=== PATIENT | female | born 1990 | race African-American/Black ===

== ENCOUNTER 2016-09-18 20:34 | Emergency (ER) | payer MEDICAID ==
[~2016-09-18] VITALS: Ht 162.6 cm; Wt 58.0 kg
[~2016-09-18 20:34] MED LIST: CEPH500C3 PO; PREN0.01 PO
[2016-09-18 20:36] VITALS: BP 119/68; PULSE 83; RESP 15; TEMP 98; O2SAT 96
--- NOTE | 2016-09-18 21:06 | PD ---
HPI Chief Complaint: Eye Problems/Injury Time Seen by Provider: 21:00 Travel History International Travel<30 days: No Contact w/Intl Traveler<30days: No Traveled to known affect area: No History of Present Illness HPI 26-year-old female presents for evaluation of left eye pain. Symptoms started this morning. She describes it as an irritation in her left eye that is worse with exposure to sunlight. She reports that she does wear contacts. She did wear them overnight and she took them out this morning. She denies any orbital injury. Denies any fevers or chills. Denies any unusual chemical exposure. She has no other complaints at this time. Last tetanus vaccination unknown. PFSH Past Medical History Diminished Hearing: No Gastrointestinal Disorders: Yes (REFLUX A CHILD) Immunizations Current: Yes ?: Not : 5 Para: 3 Miscarriage: 1 Social History Alcohol Use: No Tobacco Use: No Substance Use: No Allergies-Medications (Allergen,Severity, Reaction): Coded Allergies: No Known Allergies (Verified , 09/18/16) Reported Meds & Prescriptions Reported Meds & Active Scripts Active Tobrex Opth Drops (Tobramycin Opth Drops) 0.3 % Soln 1 Drop LEFT EYE Q4H 7 Days Lortab (Hydrocodone-Acetaminophen) 5-325 Mg Tab 1 Tab PO Q6H PRN Keflex (Cephalexin Monohydrate) 500 Mg Cap 500 Mg PO Q8 7 Days Reported Vitamins 1 Tab PO DAILY Review of Systems General / Constitutional: No: Fever, Chills Eyes: Positive: Redness, Foreign Body Sensation, Pain Physical Exam Narrative GENERAL: Well-developed well-nourished female in no acute distress SKIN: Warm and dry. HEAD: Atraumatic. Normocephalic. EYES: Pupils equal and round reactive to light, extraocular muscles are intact. Left eye conjunctival injection is present. There is direct not consensual photophobia. There is no proptosis, no periorbital edema or erythema. Wood's lamp, slit lamp examination confirmed areas of corneal ulceration at the 12:00 and 6 o'clock position on the left cornea not overlying the pupil, negative Taya's. There is no cell or flare in the anterior chamber. ENT: No nasal bleeding or discharge. Mucous membranes pink and moist. Data Data Last Documented VS Vital Signs Date Time Temp Pulse Resp B/P Pulse Ox O2 Delivery O2 Flow Rate FiO2 09/18/16 20:36 98.0 83 15 119/68 96 Room Air Orders Proparacaine 0.5% Opth Soln (Alcaine 0.5 (09/18/16 21:15) MDM Medical Decision Making Medical Screen Exam Complete: Yes Emergency Medical Condition: Yes Medical Record Reviewed: Yes Differential Diagnosis Corneal ulceration, corneal abrasion, iritis, endophthalmitis, herpes simplex keratitis, foreign body, ruptured globe Narrative Course This is a 26-year-old female who slept with contacts in her eyes overnight who presents with left eye pain and irritation which started this morning. On examination she has left eye conjunctival injection and small corneal ulcerations at the 12:00 and 6:00 positions not overlying the pupils, negative Taya's. Tetanus status updated. Plan is to treat the patient with topical antibiotic ointment, Tobrex, as well as oral Lortab for pain control. She is encouraged to seek ophthalmologic follow-up in 1-2 days for recheck. She is stable for discharge. Diagnosis Primary Impression: Corneal ulcer of left eye Referrals: Anisa Harper MD Additional Instructions: Medication as prescribed. Follow-up with an mammalogist such as Dr. Harper in one to 2 days, call to make an appointment. Do not drive or drink alcohol when taking Lortab. Return for any emergent medical conditions. Do not wear contacts until cleared by mammalogist. Med/Other Pt SpecificInfo: Prescription(s) given Scripts Tobramycin Opth Drops (Tobrex Opth Drops)0.3 % Soln1 Drop LEFT EYE Q4H 7 Days Ref 0 Prov:Siva Carroll MD 09/18/16 Hydrocodone-Acetaminophen (Lortab)5-325 Mg Tab1 Tab PO Q6H PRN (PAIN) #15 TAB Ref 0 Prov:Svia Carroll MD 09/18/16 Disposition: 01 DISCHARGE HOME Condition: Stable Thom Granger Sep 18, 2016 21:06
[2016-09-18] MEDS ORDERED: PROPARACAINE HCL 0.5% OPHT SOLN 15 ML BTL LEFT EYE ONE (21:15)
[2016-09-18] MEDS ORDERED: TOBR0.3S LEFT EYE (21:21)
[2016-09-18] MEDS ORDERED: HYDR-3533 PO (21:21)
[2016-09-18] MEDS ORDERED: TETANUS/DIPHTHERIA TOXOID ADULT 0.5 ML VIAL IM ONE (21:30)
[2016-09-18] MEDS ORDERED: ACETAMINOPHEN/HYDROcodone 325 MG/5 MG TAB PO ONE (21:30)
== END 2016-09-18 21:53 | disposition home or self-care (01) ==
LOC: NEPB 20:34
DX: H16.002 Unspecified corneal ulcer, left eye (principal); Z23 Encounter for immunization
CPT/HCPCS: 90471; 90714

== ENCOUNTER 2017-02-17 12:23 | Emergency (ER) | payer MEDICAID ==
[~2017-02-17] VITALS: Ht 165.1 cm; Wt 58.0 kg
[~2017-02-17 12:23] MED LIST changes: +HYDR-3533 PO; +TOBR0.3S LEFT EYE
[2017-02-17 12:28] VITALS: BP 134/86; PULSE 76; RESP 20; TEMP 98; O2SAT 100
[2017-02-17 12:34] VITALS: BP 117/76; PULSE 80; RESP 18; O2SAT 98
[2017-02-17] MEDS ORDERED: ONDANSETRON HCL 4 MG/2 ML VIAL IVP ONE (12:45)
[2017-02-17] MEDS ORDERED: ALUMINUM/MAGNESIUM/SIMETH 30 ML CUP PO ONE (12:45)
[2017-02-17] MEDS ORDERED: PANTOPRAZOLE SODIUM 40 MG VIAL IVP ONE (12:45)
[2017-02-17] MEDS ORDERED: LIDOCAINE VISCOUS 2% SOLN 15 ML UDC PO ONE (12:45)
--- NOTE | 2017-02-17 12:47 | PD ---
HPI Chief Complaint: Abdominal Pain Time Seen by Provider: 12:39 Travel History International Travel<30 days: No Contact w/Intl Traveler<30days: No Traveled to known affect area: No History of Present Illness HPI This patient was examined in the presence of female nurse. 26-year-old female presents for evaluation of abdominal pain. Symptoms started this morning. The pain is an aching pain in the epigastrium/left upper quadrant. No obvious aggravating relieving factors. She endorses mild intermittent nausea for the past few weeks, worse this morning. She denies any fevers or chills, flank pain , diarrhea or constipation, vaginal bleeding or discharge. She has never had this sort of pain before. She endorses only very occasional ibuprofen use, denies other NSAID use. No other complaints. PFSH Past Medical History Medical History: Denies Significant Hx Diminished Hearing: No Gastrointestinal Disorders: Yes (REFLUX A CHILD) Immunizations Current: Yes ?: Not LMP: DEPO : 5 Para: 3 Miscarriage: 1 Past Surgical History Surgical History: No Previous Surgery Social History Alcohol Use: No Tobacco Use: No Substance Use: No Allergies-Medications (Allergen,Severity, Reaction): Coded Allergies: No Known Allergies (Verified , 02/17/17) Reported Meds & Prescriptions Reported Meds & Active Scripts Active Tobrex Opth Drops (Tobramycin Opth Drops) 0.3 % Soln 1 Drop LEFT EYE Q4H 7 Days Review of Systems Except as stated in HPI: all other systems reviewed are Neg Physical Exam Narrative GENERAL: Well-developed well-nourished female in no acute distress SKIN: Warm and dry. HEAD: Atraumatic. Normocephalic. EYES: Pupils equal and round. No scleral icterus. No injection or drainage. ENT: No nasal bleeding or discharge. Mucous membranes pink and moist. NECK: Trachea midline. No JVD. CARDIOVASCULAR: Regular rate and rhythm. No murmur appreciated. RESPIRATORY: No accessory muscle use. Clear to auscultation. Breath sounds equal bilaterally. GASTROINTESTINAL: Abdomen soft, non-tender, nondistended. Hepatic and splenic margins not palpable. MUSCULOSKELETAL: No obvious deformities. No edema. No CVA tenderness. NEUROLOGICAL: Awake and alert. No obvious cranial nerve deficits. Motor grossly within normal limits. Normal speech. PSYCHIATRIC: Appropriate mood and affect; insight and judgment normal. Data Data Last Documented VS Vital Signs Date Time Temp Pulse Resp B/P Pulse Ox O2 Delivery O2 Flow Rate FiO2 02/17/17 12:34 80 18 117/76 98 Room Air 02/17/17 12:28 98.0 Orders Complete Blood Count With Diff (02/17/17 12:43) Comprehensive Metabolic Panel (02/17/17 12:43) Lipase (02/17/17 12:43) Urinalysis - C+S If Indicated (02/17/17 12:43) Ondansetron Inj (Zofran Inj) (02/17/17 12:45) Pantoprazole Inj (Protonix Inj) (02/17/17 12:45) Al-Mag Hy-Si 40-40-4 Mg/Ml Liq (Mag-Al P (02/17/17 12:45) Lidocaine 2% Viscous (Xylocaine 2% Visco (02/17/17 12:45) Ed Urine Pregnancytest Poc (02/17/17 12:43) Labs Laboratory Tests Test 02/17/17 12:55 White Blood Count 5.9 TH/MM3 Red Blood Count 5.03 MIL/MM3 Hemoglobin 13.2 GM/DL Hematocrit 41.3 % Mean Corpuscular Volume 82.0 FL Mean Corpuscular Hemoglobin 26.1 PG Mean Corpuscular Hemoglobin 31.9 % Concent Red Cell Distribution Width 13.8 % Platelet Count 233 TH/MM3 Mean Platelet Volume 8.3 FL Neutrophils (%) (Auto) 59.7 % Lymphocytes (%) (Auto) 32.1 % Monocytes (%) (Auto) 7.1 % Eosinophils (%) (Auto) 0.7 % Basophils (%) (Auto) 0.4 % Neutrophils # (Auto) 3.5 TH/MM3 Lymphocytes # (Auto) 1.9 TH/MM3 Monocytes # (Auto) 0.4 TH/MM3 Eosinophils # (Auto) 0.0 TH/MM3 Basophils # (Auto) 0.0 TH/MM3 CBC Comment DIFF FINAL Differential Comment Urine Color YELLOW Urine Turbidity CLEAR Urine pH 6.0 Urine Specific [place] 1.026 Urine Protein NEG mg/dL Urine Glucose (UA) NEG mg/dL Urine Ketones NEG mg/dL Urine Occult Blood NEG Urine Nitrite NEG Urine Bilirubin NEG Urine Urobilinogen LESS THAN 2.0 MG/DL Urine Leukocyte Esterase NEG Urine RBC LESS THAN 1 /hpf Urine WBC LESS THAN 1 /hpf Urine Squamous Epithelial 1 /hpf Cells Urine Mucus FEW /lpf Microscopic Urinalysis Comment CULT NOT INDICATED Sodium Level 141 MEQ/L Potassium Level 3.8 MEQ/L Chloride Level 106 MEQ/L Carbon Dioxide Level 30.2 MEQ/L Anion Gap 5 MEQ/L Blood Urea Nitrogen 14 MG/DL Creatinine 1.01 MG/DL Estimat Glomerular Filtration 80 ML/MIN Rate Random Glucose 88 MG/DL Calcium Level 8.9 MG/DL Total Bilirubin 0.4 MG/DL Aspartate Amino Transf 16 U/L (AST/SGOT) Alanine Aminotransferase 18 U/L (ALT/SGPT) Alkaline Phosphatase 53 U/L Total Protein 7.6 GM/DL Albumin 4.1 GM/DL Lipase 242 U/L MDM Medical Decision Making Medical Screen Exam Complete: Yes Emergency Medical Condition: Yes Medical Record Reviewed: Yes Interpretation(s) ED urine test negative Differential Diagnosis Gastritis, peptic ulcer disease, pancreatitis, perforated ulcer, Mahaffey Abel syndrome, gastroenteritis Narrative Course 26-year-old female with intermittent nausea for the past few weeks now with left upper quadrant abdominal discomfort for one day. Her abdomen is soft and nontender. I suspect gastritis as the etiology of her symptoms based on the location of the pain. She has no peritoneal signs. She has no right upper quadrant tenderness. She has no CVA tenderness. Plan is for basic lab work. She will be given GI cocktail, Protonix and Zofran for symptom relief. Lab work is unremarkable. The patient reports significant improvement in her symptoms after the administration of GI cocktail. She is stable for discharge. Diagnosis Primary Impression: Gastritis Qualified Code: K29.00 - Acute gastritis, presence of bleeding unspecified, unspecified gastritis type Additional Instructions: Avoid [id number] naproxen/Advil/Motrin/Aleve/ibuprofen. Follow-up with primary care physician. Return for any emergent medical conditions. Med/Other Pt SpecificInfo: No Change to Meds Disposition: DISCHARGE HOME Condition: Stable Thom Granger Feb 17, 2017 12:47
[2017-02-17 13:15] LABS: AUTOMATED NEUTROPHIL # 3.5 TH/MM3 (1.8-7.7); BASOPHIL % 0.4 % (0.0-2.0); EOSINOPHIL % 0.7 % (0.0-4.0); HEMATOCRIT 41.3 % (35.0-46.0); HEMO FLAGS DIFF FINAL; LYMPH % 32.1 % (9.0-44.0); LYMPHOCYTE # 1.9 TH/MM3 (1.0-4.8); MEAN CORPUSCULAR HEMOGLOBIN 26.1 PG (27.0-34.0); MEAN CORPUSCULAR HGB CONC 31.9 % (32.0-36.0); MONO % 7.1 % (0.0-8.0); NEUT % 59.7 % (16.0-70.0); PLATELET COUNT 233 TH/MM3 (150-450); RED BLOOD COUNT 5.03 MIL/MM3 (4.00-5.30); RED CELL DISTRIBUTION WIDTH 13.8 % (11.6-17.2); WHITE BLOOD COUNT 5.9 TH/MM3 (4.0-11.0)
[2017-02-17 13:27] LABS: BLOOD, URINE NEG (NEG); COMMENT (UR) CULT NOT INDICATED; CULTURE IF INDICATED CULT NOT INDICATED; GLUCOSE,URINE NEG (NEG); KETONE, URINE NEG (NEG); MUCUS URINE FEW /lpf (OCC); NITRITE,URINE NEG (NEG); SQUAMOUS EPITHELIAL CELL URINE 1 /hpf (0-5); URINE COLOR YELLOW (YELLW/STRAW)
[2017-02-17 13:30] LABS: ANION GAP 5 MEQ/L (5-15); AST (GOT) 16 U/L (15-37); BICARBONATE 30.2 MEQ/L (21.0-32.0); BLOOD UREA NITROGEN 14 MG/DL (7-18); CHLORIDE 106 MEQ/L (98-107); GLOMERULAR FILTRATION RATE 80 ML/MIN (>89); POTASSIUM 3.8 MEQ/L (3.5-5.1); SODIUM (NA) 141 MEQ/L (136-145)
[2017-02-17 13:33] LABS: ALKALINE PHOSPHATASE 53 U/L (45-117); ALT (GPT) 18 U/L (10-53); TOTAL BILIRUBIN ADULT 0.4 MG/DL (0.2-1.0)
== END 2017-02-17 13:52 | disposition home or self-care (01) ==
LOC: NEPD 12:23
DX: K29.70 Gastritis, unspecified, without bleeding (principal)
CPT/HCPCS: 80053; 81001; 83690; 84703; 85025; 96374; 96375; 99284; C9113; J2405

== ENCOUNTER 2017-08-24 19:35 | Emergency (ER) | payer MEDICAID ==
[~2017-08-24] VITALS: Ht 162.6 cm; Wt 58.0 kg
[~2017-08-24 19:35] MED LIST changes: -CEPH500C3 PO; -HYDR-3533 PO; -PREN0.01 PO
[2017-08-24 19:37] VITALS: BP 110/73; TEMP 99.5; O2SAT 100
[2017-08-24 19:38] VITALS: BP 110/73; PULSE 78; RESP 16; TEMP 99.5; O2SAT 100
--- NOTE | 2017-08-24 20:31 | PD ---
HPI Chief Complaint: ENT Complaint Time Seen by Provider: 20:31 Travel History International Travel<30 days: No Contact w/Intl Traveler<30days: No Traveled to known affect area: No History of Present Illness HPI 27-year-old female came to the emergency room with history of right ear pain that has been going on for past 4-5 days. She has also noticed that she can't hear much out of the right ear. The pain is significant words affecting her scalp on that side. Vital signs are stable. Patient denies swimming. Patient has noticed some clear discharge from her ear and has put some tissue in that ear to prevent the drainage. PFS Past Medical History Narrative Medical List of her past medical, surgical, social and family history is reviewed from the nursing note. Diminished Hearing: No Gastrointestinal Disorders: Yes (REFLUX A CHILD) Immunizations Current: Yes ?: Not : 5 Para: 3 Miscarriage: 1 Past Surgical History Surgical History: No Previous Surgery Social History Alcohol Use: No Tobacco Use: No Substance Use: No Allergies-Medications (Allergen,Severity, Reaction): Coded Allergies: No Known Allergies (Verified Adverse Reaction, Unknown, 08/24/17) Comments No known drug allergies. Reported Meds & Prescriptions Reported Meds & Active Scripts Active Tobrex Opth Drops (Tobramycin Opth Drops) 0.3 % Soln 1 Drop LEFT EYE Q4H 7 Days Narrative Medication List of her home medications reviewed from the nursing note. Review of Systems Except as stated in HPI: all other systems reviewed are Neg HENT: Positive: Ear Discharge, Earache Physical Exam Narrative GENERAL: Awake, alert, moderate distress SKIN: Focused skin assessment warm/dry. HEAD: Atraumatic. Normocephalic. EYES: Pupils equal and round. No scleral icterus. No injection or drainage. ENT: No nasal bleeding or discharge. Mucous membranes pink and moist. Right ear canal is swollen shut and very tender to touch. I was unable to insert the speculum to inspect the middle ear. NECK: Trachea midline. No JVD. CARDIOVASCULAR: Regular rate and rhythm. No murmur appreciated. RESPIRATORY: No accessory muscle use. Clear to auscultation. Breath sounds equal bilaterally. GASTROINTESTINAL: Abdomen soft, non-tender, nondistended. Hepatic and splenic margins not palpable. MUSCULOSKELETAL: No obvious deformities. No clubbing. No cyanosis. No edema. NEUROLOGICAL: Awake and alert. No obvious cranial nerve deficits. Motor grossly within normal limits. Normal speech. PSYCHIATRIC: Appropriate mood and affect; insight and judgment normal. Data Data Last Documented VS Orders Orders Ibuprofen (Motrin) (08/24/17 20:45) Ciprofloxacin-Hc Otic Soln (Cipro-Hc [place] (08/24/17 21:00) Ed Discharge Order (08/24/17 20:56) MDM Medical Decision Making Medical Screen Exam Complete: Yes Emergency Medical Condition: Yes Medical Record Reviewed: Yes Differential Diagnosis Otitis externa Narrative Course 8:59 PM 2 ear davy were inserted in the swollen ear canal. Please refer to my procedure note. Patient seemed to be in pain but overall tolerated well. I have ordered for ciprofloxacin HC otic drops and Motrin for here. Patient will take the eardrops home with her as well to finish the rest of the bottle. She has been given clear instructions. Her boyfriend/friend was in the room as well and he has her those instructions as well. Procedures Procedure Narrative Wick insertion in the ear canal: Two ear davy were inserted into the swollen right ear canal. Patient was in some pain during this quick procedure but overall tolerated it well. EKG Prior to Arrival: No Diagnosis Primary Impression: Otitis externa Qualified Codes: H60.391 - Other infective otitis externa, right ear Additional Impression: Otalgia Qualified Codes: H92.01 - Otalgia, right ear Referrals: Primary Care Physician 2 days Additional Instructions: Return to the ER if the condition worsens or any other new concerns. Otherwise follow-up with your primary care next couple days. Continue applying the ear drop as per the prescription direction. Take ibuprofen for pain as needed. No swimming until the ear is completely healed. Do not pull out the wick. It will fall out on its own once the swelling subsides. Continue putting the ear drop even if the wick falls off. Med/Other Pt SpecificInfo: Prescription(s) given Disposition: 01 DISCHARGE HOME Condition: Susanna Hillman MD Aug 24, 2017 20:31
[2017-08-24] MEDS ORDERED: IBUPROFEN 600 MG TAB PO ONE (20:45)
[2017-08-24] MEDS ORDERED: CIPROFLOXACIN/HYDROCORTISONE OTIC 10 ML BTL RIGHT EAR SCH (21:00)
== END 2017-08-24 21:43 | disposition home or self-care (01) ==
LOC: NEPD 19:35
DX: H60.91 Unspecified otitis externa, right ear (principal); K21.9 Gastro-esophageal reflux disease without esophagitis
CPT/HCPCS: 99283